=== PATIENT | female | born 1940 | race Caucasian/White ===

== ENCOUNTER 2017-02-02 08:03 | Inpatient (IN) ==
--- NOTE | 2017-02-01 21:44 | Discharge Summary ---
<ThaoBhumi ni L - Last Filed: 02/01/17 21:42> Date of Encounter: 02/01/17 - Discharge Diagnosis (1) Rotator cuff tear arthropathy of right shoulder Priority: Primary Status: Acute (2) Diabetes Priority: Secondary Status: Chronic Qualifiers: Diabetes mellitus type: type 2 Diabetes mellitus complication status: with unspecified complications Diabetes mellitus manager intermediate insulin use: unspecified [facility] insulin use status Qualified Code(s): E11.8 - Type 2 diabetes mellitus with unspecified complications (3) Asthma Priority: Secondary Status: Chronic Qualifiers: Asthma severity: unspecified severity Asthma complication type: uncomplicated Qualified Code(s): J45.909 - Unspecified asthma, uncomplicated (4) COPD (chronic obstructive pulmonary disease) Priority: Secondary Status: Chronic Qualifiers: COPD type: unspecified COPD Qualified Code(s): J44.9 - Chronic obstructive pulmonary disease, unspecified (5) Tobacco abuse Priority: Secondary Status: Chronic (6) DM type 2 (diabetes mellitus, type 2) Priority: Secondary Status: Chronic Qualifiers: Diabetes mellitus complication status: with unspecified complications Diabetes mellitus [facility] insulin use: unspecified manager intermediate insulin use status Qualified Code(s): E11.8 - Type 2 diabetes mellitus with unspecified complications - Discharge Medications Home Medications: Alprazolam [Xanax] 0.5 mg PO BID 08/13/15 [History] Esomeprazole Magnesium [Nexium] 40 mg PO DAILY 08/13/15 [History] Oxygen 2.5 l NS HS 08/13/15 [History] TraZODone 100 mg PO HS 08/13/15 [History] Metformin [Glucophage] 500 mg PO BIDWM #60 tablet 08/20/15 [Rx] OxyCODONE Immed Rel [Roxicodone 5 MG] 5 - 10 mg PO Q6HR PRN #40 tablet 02/01/17 [Rx] Ibuprofen [Motrin] 200 mg PO Q6H PRN 02/02/17 [History] Tramadol HCl [Ultram] 50 mg PO Q6H PRN 02/02/17 [History] Allergies/Adverse Reactions: Allergies No Known Allergies Allergy (Verified 02/02/17 09:55) Primary care physician: Adenike Shelton CNP - Patient Status Disposition: Home, Self-Care Condition: Good - Discharge Instructions Follow Up With: Monroe Alva MD [Partnered Physician] - 03/03/17 10:45 am Bhumi Miner PAC [Physician Director Of Application Development] - 02/12/17 2:30 pm Adenike Shelton CNP [Primary Care Provider] - - Hospital Course Hospital course: Ms. Banda is a 76 year old female - Time Spent with Patient Total time spent providing and/or coordinating discharge services: <Monroe Alva - Last Filed: 02/03/17 06:30> Date of Encounter: 02/03/17 Time of Encounter: 06:29 - Discharge Diagnosis (1) Asthma Priority: Secondary Status: Chronic Qualifiers: Asthma severity: unspecified severity Asthma complication type: uncomplicated Qualified Code(s): J45.909 - Unspecified asthma, uncomplicated (2) COPD (chronic obstructive pulmonary disease) Priority: Secondary Status: Chronic Qualifiers: COPD type: unspecified COPD Qualified Code(s): J44.9 - Chronic obstructive pulmonary disease, unspecified (3) Tobacco abuse Priority: Secondary Status: Chronic (4) DM type 2 (diabetes mellitus, type 2) Priority: Secondary Status: Chronic Qualifiers: Diabetes mellitus complication status: with unspecified complications Diabetes mellitus [facility] insulin use: unspecified [facility] insulin use status Qualified Code(s): E11.8 - Type 2 diabetes mellitus with unspecified complications (5) Rotator cuff tear arthropathy of right shoulder Priority: Primary Status: Acute Primary care physician: Adenike Shelton CNP - Patient Status Functional capacity at discharge: independent ambulation Overall status at discharge: patient is progressing back to baseline - Hospital Course Hospital course: Ms. Banda is a 76 year old female The patient had an uneventful postoperative course. They received antibiotics and physical therapy and were discharged in stable condition. There will follow -up in the office in 2 weeks. - Time Spent with Patient Total time spent providing and/or coordinating discharge services:
--- NOTE | 2017-02-02 08:31 | History & Physical Report ---
Date of Encounter: 02/02/17 Time of Encounter: 08:30 24 Hour HP Update - Instructions Instructions: If the History and Physical is less than 30 days old and was completed prior to A.M. admission and or procedure and has NOT been updated on calendar day of procedure please complete this update prior to performing procedure. - Update Patient reports changes in Medical Condition: No Changes in examination, assessment, or condition: No Changes in Medication: No Preop tests/diagnostics Reviewed: Yes Surgery Remains Indicated: Yes Consent for Planned Operative Procedure(s) Verified: Yes - Pre-Operative Checklist Preoperative Checklist Indicated: No Prophylactic Antibiotic Ordered: Yes Is VTE Prophylaxis Indicated?: Yes
[2017-02-02] MEDS ORDERED: Albuterol 2.5 MG/3 ML NEBULIZER IH ONE (08:43)
[2017-02-02] MEDS ORDERED: CeFAZolin Pre 2,000 MG/100 ML 2,000 MG/100 ML BAG IVPB ONE (08:43)
[2017-02-02] MEDS ORDERED: Ringers Solution, Lactated 1,000 ML IVC SCH ×2 (08:45→12:07)
[2017-02-02] MEDS ORDERED: Gabapentin 300 MG CAPSULE PO ONE (08:50)
[2017-02-02] MEDS ORDERED: Famotidine 20 MG/2 ML VIAL IVP ONE (08:50)
--- NOTE | 2017-02-02 08:54 | Anesthesia Evaluation PreOp ---
Date of Encounter: 02/02/17 Time of Encounter: 08:50 - Past History Planned Operation: Rt Total Shoulder Cardiac History: HTN Pulmonary History: Asthma, COPD, Other (home oxygen at night) SOFTWARE MAINTENANCE ENGINEER History: Other (Paresthesia Rt UE) Other Medical History: Diabetes Type II (Accu check 184) Anesthesia History: No Prior Anesthetic Complications : No Test: Negative Alcohol Use: occasionally Drug use: none Medications and Allergies Alprazolam [Xanax] 0.5 mg PO TID 08/13/15 [History] Calcium Carbonate/Vitamin D3 [Calcium 600-Vit D3 800 Tablet] 1 tab PO BID [History] Esomeprazole Magnesium [Nexium] 40 mg PO DAILY 08/13/15 [History] Metformin [Glucophage] 1,000 mg PO BIDWM 08/13/15 [History] Oxygen 2 l NS HS 08/13/15 [History] TraZODone 100 mg PO HS 08/13/15 [History] Metformin [Glucophage] 500 mg PO BIDWM #60 tablet 08/20/15 [Rx] GuaiFENesin ER [Mucinex] 1,200 mg PO BID #20 tbbp.12hr 01/17/17 [Rx] Levofloxacin [Levaquin] 500 mg PO DAILY #10 tablet 01/17/17 [Rx] PredniSONE See Taper PO DAILY #18 tablet 01/17/17 [Rx] OxyCODONE Immed Rel [Roxicodone 5 MG] 5 - 10 mg PO Q6HR PRN #40 tablet 02/01/17 [Rx] Allergies No Known Allergies Allergy (Verified 01/17/17 12:06) - Meds/Allergy Pre-op Review Medications Reviewed: Yes Allergies Reviewed: Yes Beta Blockers on Current Med List: No Anesthesia Results - Labs Laboratory Tests 01/23/17 01/23/17 01/23/17 11:01 11:01 11:01 Hgb 12.3 Hct 36.8 Plt Count 356 PT 10.5 INR 1.0 Sodium 133 L Potassium 4.8 H BUN 8 Creatinine 0.81 - Imaging EKG: report reviewed (SR) Anesthesia Exam O2 Sat Height 1.55 m Height 1.55 m Height 1.55 m Weight 67.585 kg Weight 67.585 kg Weight 67.585 kg O2 Sat by Pulse Oximetry 96 Vital Signs Temp Pulse Resp BP Pulse Ox 97.7 F 82 18 146/75 96 02/02/17 08:26 02/02/17 08:26 02/02/17 08:26 02/02/17 08:26 02/02/17 08:26 Height: 5'1 Weight: 149 lbs NPO (# of Hours): MN Pain Scale: 0 - HEENT Pupil (Motor): Pupils equal, EOMI Mallampati: III Denture Type: Upper: Complete Oral Opening: Less than or equal to 3 - SOFTWARE MAINTENANCE ENGINEER LOC: Oriented SOFTWARE MAINTENANCE ENGINEER Motor: Normal RUE, Normal LUE, Normal RLE, Normal LLE, Normal Face SOFTWARE MAINTENANCE ENGINEER Sensory: Normal: LUE, RLE, LLE, Face, Deficit: RUE (paresthesia) - Cardiac Rhythm: Regular Murmur: None JVD: No Carotid Bruit: No - Pulmonary Breath Sounds: bilateral Clear Respiratory Effort: Symmetrical Anesthesia Assess/Plan ASA Score: 3 (HTN DM) Modified Rena Scale for Level of Consciousness: Cooperative, oriented, and tranquil Anesthetic Plan: General, Regional Monitoring Plan: Standard Monitors Recovery Plan: PACU (Discussed GA and RA, agrees to proceed)
[2017-02-02] MEDS ORDERED: *HR* FentaNYL (PF) 100 MCG/2 ML VIAL ONE (09:20)
[2017-02-02] MEDS ORDERED: Lidocaine -MPF 2% 2 ML VIAL ONE (09:20)
[2017-02-02] MEDS ORDERED: *HR* Rocuronium Bromide 50 MG/5 ML VIAL ONE (09:20)
[2017-02-02] MEDS ORDERED: *HR* Propofol 200 MG/20 ML VIAL IVP ONE (09:20)
[2017-02-02] MEDS ORDERED: Ondansetron 4 MG/2 ML VIAL ONE (09:20)
[2017-02-02] MEDS ORDERED: *HR* Midazolam HCl 2 MG/2 ML VIAL ONE (09:43)
[2017-02-02] MEDS ORDERED: ROPIVACAINE HCL/PF 0.5% 30 ML VIAL ONE (09:45)
[2017-02-02] MEDS ORDERED: Tetracaine/PF 20 MG/2 ML AMPUL ONE (09:46)
[2017-02-02] MEDS ORDERED: Bupivacaine/Clonidine Syringe 1 EACH SYRINGE ONE (09:47)
--- NOTE | 2017-02-02 10:11 | Anesthesia Procedures ---
Date of Encounter: 02/02/17 Time of Encounter: 08:50 Procedures: Anesthesia - Nerve Block Procedure Date: 02/02/17 Time: 10:00 Pre-op Diagnosis: Rt Shoulder Arthropathy Surgical Procedure: Rt Total Shoulder Checklist: Correct Patient Identifier Correct side: Right Blood Thinner: No Monitor Applied: EKG, BP, Pulse Oximetry Supplemental Oxygen via Nasal Cannula (L/min): 2 Sedation: Versed (mg): 1 Sedation: Fentanyl (mcg): 100 Indication: Post Op Analgesia Pre-op Neuro Deficits: Yes (Rt UE paresthesia) Block Type: Supraclavicular Catheter placed: No Depth at skin (cm): 2 Sterile Technique: Yes Ultrasound used: Yes Anatomy identified: Yes Visual spread of Local: Yes Neuro Stimulation: No Blood on Needle Aspiration: No Smooth Injection of Local: Yes Pain with Injection of Local: No Prep: Chlorhexadine Needle: 22 x 50 mm Stimuplex Local: Tetracaine, Ropivacaine (0.5%) Volume (cc): 30 Number of Attempts: 1 Complications: None/effective block Vitals: Vital Signs/O2 Sat/Glucose, Most Current Temp Pulse Resp BP Pulse Ox 02/02/17 09:47 83 142/79 97 02/02/17 08:26 97.7 F 82 18 146/75 96
[2017-02-02] MEDS ORDERED: Neostigmine Methylsulfate 3 MG/3 ML SYRINGE ONE ×2 (10:56→15:40)
--- NOTE | 2017-02-02 10:56 | Orthopedic Operative Note ---
Date of procedure: 02/02/17 Pre-op diagnosis: Right shoulder cuff tear arthropathy Post-op diagnosis: same Procedure: Procedure: Right Total Shoulder Replacment Reverse, biceps tenodesis Estimated blood loss: 100 cc Hardware:Arthrex medium glenoid baseplate, 2 4.5 screws. 1 6.5 screw, 39 lateral glenosphere, 8 humeral stem, poly insert 6 Exam Under anesthesia: Full motion no instability Procedural Notes: Irreparable tear supraspinatus tendon. Operative procedure: The patient was brought to the operating room and placed on the operating room table. After general anesthesia was administered the operative shoulder was examined. Findings were noted. The patient was placed in the modified beachchair position. All pressure points were padded appropriately. And the head was stabilized in the neutral position. The operative extremity was prepped and draped in the sterile surgical fashion. The patient received IV antibiotics prior to skin incision. A standard deltopectoral approach was made to the operative shoulder. Incision was made to the skin and subcutaneous tissue,hemo stasis was obtained with Bovie cautery. Using careful blunt dissection the cephalic vein was identified and mobilized medially. The deltopectoral interval was developed and the clavipectoral fascia was incised. The subscap was released off the lesser tuberosity and tagged with #2 FiberWire suture. The humerus was dislocated patient noted to have irreparable tear supraspinatus tendon, and the humeral cut was made along the anatomic neck. Anterior and posterior Bankart retractors were placed to expose the glenoid. The glenoid guide was seated and the centering hole was made. It was reamed with the appropriate reamer. The medium baseplate was seated and secured with (2) 4.5 screws and one 6.5 screw. The baseplate was irrigated and dried and the 39 lateral Glenosphere was seated and secured with the Paul taper. The Paul taper was tested and found to be secure the humerus was redislocated and prepared with the diaphyseal reamers, followed by a broaching process up to the appropriate size X in the patient's anatomic version. The metaphyseal reamer was then utilized. Trial reduction found the shoulder to be relocatable. Trial components were removed and drill holes were placed in the lesser tuberosity. They were filled with #5 FiberWire suture. These sutures were used for a subscap repair. The appropriate 8 stem was impacted in place in the patient's anatomic version. Trial reduction found the shoulder to be relocatable and stable with the appropriate 6 Trial component was removed and the Judd Jemima was seated and secured the shoulder was reduced. The shoulder had excellent motion and excellent stability and no evidence of dislocation. The deep tissue was irrigated with pulse irrigation. The subscap was repaired incorporating the biceps tendon for biceps tenodesis and a subscap repair. The deltopectoral interval was closed with a running #1 PDS suture, subcutaneous tissue was irrigated and closed with 0 PDS suture, the skin was closed with Dermabond. The patient was placed in a sterile dressing, abduction brace and extubated. The patient was then transferred to the recovery room in stable condition. Anesthesia: BHARGAV Surgeon: Monroe Alva Area Director: Bhumi Miner Condition: stable Disposition: PACU
[2017-02-02 11:35] LABS: Hematocrit 30.3 % (35.3-44.9); Hemoglobin 10.1 g/dL (11.5-15.4)
[2017-02-02] MEDS ORDERED: *HR* HYDROmorphone (PF) 1 MG/ML SYRINGE IVP PRN (12:07)
[2017-02-02] MEDS ORDERED: Naloxone 0.4 MG/ML INJ IVP PRN (12:07)
[2017-02-02] MEDS ORDERED: traMADol 50 MG TABLET PO PRN (12:07)
[2017-02-02] MEDS ORDERED: D5% in Water 1,000 ML IVC PRN (12:07)
[2017-02-02] MEDS ORDERED: Temazepam 15 MG CAPSULE PO PRN (12:07)
[2017-02-02] MEDS ORDERED: Sennosides 8.6 MG TABLET PO PRN (12:07)
[2017-02-02] MEDS ORDERED: *HR* Dextrose 50 % in Water (Syg) 50 ML SYRINGE IVP PRN (12:07)
[2017-02-02] MEDS ORDERED: Acetaminophen 325 MG TABLET PO PRN (12:07)
[2017-02-02] MEDS ORDERED: MOM Conc 10 ML UD.LIQ PO PRN (12:07)
[2017-02-02] MEDS ORDERED: Ondansetron 4 MG/2 ML VIAL IVP PRN (12:07)
[2017-02-02] MEDS ORDERED: Ibuprofen 200 MG TABLET PO PRN (12:07)
[2017-02-02] MEDS ORDERED: Dextrose Gel 15 GM PO PRN ×2 (12:07)
[2017-02-02] MEDS ORDERED: *HR* OxyCODONE Immed Rel 5 MG TABLET PO PRN ×2 (12:07→12:18)
--- NOTE | 2017-02-02 12:10 | Anesthesia Evaluation Post Op ---
Date of Encounter: 02/02/17 Time of Encounter: 12:00 - Vital Signs Vital Signs: Vital Signs/O2 Sat/Glucose, Most Current Temp Pulse Resp BP Pulse Ox 02/02/17 11:55 97.6 F 72 16 147/78 99 02/02/17 11:45 97.8 F 77 16 147/81 99 02/02/17 11:35 94 16 150/81 99 02/02/17 11:25 92 16 141/72 99 02/02/17 11:15 97.1 F L 95 18 151/77 93 02/02/17 09:47 83 142/79 97 02/02/17 08:26 97.7 F 82 18 146/75 96 - Lungs Lungs: Clear Ascult./Percussion - Airway Airway: Non-obstructed - Cardiovascular Regular Rate - Mental Status Mental Status: Alert & Oriented, Answers Appropriately - Pain Pain Scale: 0 - Nausea Vomiting Nausea Vomiting: Not Present - Hydration Hydration: Ice chips - Discharge PostOp Status: Transfer Patient to floor
[2017-02-02] MEDS: Insulin LISPRO 300 UNITS/3 ML VIAL SQ SCH ×2 (12:51→16:23)
[2017-02-02] MEDS: ALPRAZolam 0.5 MG TABLET PO SCH ×2 (14:38→21:52)
[2017-02-02] MEDS: *HR* Enoxaparin 30 MG/0.3 ML SYRINGE SQ SCH (17:49)
[2017-02-02] MEDS: ceFAZolin 2,000 MG in D5% in Water 100 ML IVPB SCH (17:49)
[2017-02-02] MEDS: *HR* Metformin 500 MG TABLET PO SCH (17:49)
[2017-02-02] MEDS ORDERED: *HR* Enoxaparin 30 MG/0.3 ML SYRINGE SQ SCH (18:00)
[2017-02-02] MEDS ORDERED: Insulin LISPRO 300 UNITS/3 ML VIAL SQ SCH (21:00)
[2017-02-02] MEDS ORDERED: traZODone 50 MG TABLET PO SCH (21:00)
[2017-02-02] MEDS ORDERED: NON-FORMULARY MEDICATION 1 EACH EACH (Oxygen [Oxygen] 2.5 L) NS SCH (21:00)
[2017-02-03] MEDS: ceFAZolin 2,000 MG in D5% in Water 100 ML IVPB SCH (01:58)
[2017-02-03] MEDS: *HR* OxyCODONE Immed Rel 5 MG TABLET PO PRN ×2 (01:59→06:38)
[2017-02-03 05:15] LABS: Hematocrit 33.6 % (35.3-44.9); Hemoglobin 11.2 g/dL (11.5-15.4)
[2017-02-03] MEDS: *HR* Enoxaparin 30 MG/0.3 ML SYRINGE SQ SCH (05:38)
--- NOTE | 2017-02-03 06:30 | Orthopedics Progress Note ---
Date of Encounter: 02/03/17 Time of Encounter: 06:30 - Assessment and Plan (1) Asthma Current Visit: No Status: Chronic Qualifiers: Asthma severity: unspecified severity Asthma complication type: uncomplicated Qualified Code(s): J45.909 - Unspecified asthma, uncomplicated (2) COPD (chronic obstructive pulmonary disease) Current Visit: No Status: Chronic Qualifiers: COPD type: unspecified COPD Qualified Code(s): J44.9 - Chronic obstructive pulmonary disease, unspecified (3) Tobacco abuse Current Visit: No Status: Chronic (4) DM type 2 (diabetes mellitus, type 2) Current Visit: No Status: Chronic Qualifiers: Diabetes mellitus complication status: with unspecified complications Diabetes mellitus custodial insulin use: unspecified custodial insulin use status Qualified Code(s): E11.8 - Type 2 diabetes mellitus with unspecified complications (5) Rotator cuff tear arthropathy of right shoulder Current Visit: Yes Status: Acute Subjective Interval history: Patient was seen this morning doing well without complaints. Afebrile vital signs stable. Operative extremity: Neurovascularly intact Dressing clean dry and intact Calves nontender Assessment and plan: Continue with postoperative care Hematocrit 33 discharged today Objective Vital signs: Vital Signs Temp Pulse Resp BP Pulse Ox 02/03/17 04:34 97.6 F 66 18 141/56 97 02/02/17 23:58 97.7 F 64 19 149/69 97 02/02/17 20:15 97.8 F 69 17 143/63 97 02/02/17 15:12 96.7 F L 02/02/17 14:49 62 12 142/81 97 02/02/17 14:16 95.9 F L 589 12 147/74 92 02/02/17 13:49 95.9 F L 02/02/17 13:20 96.2 F L 71 16 151/91 98 02/02/17 12:49 66 14 162/94 100 02/02/17 12:26 100 02/02/17 12:22 65 14 156/82 100 02/02/17 11:55 97.6 F 72 16 147/78 99 02/02/17 11:45 97.8 F 77 16 147/81 99 02/02/17 11:35 94 16 150/81 99 02/02/17 11:25 92 16 141/72 99 02/02/17 11:15 97.1 F L 95 18 151/77 93 02/02/17 09:47 83 142/79 97 02/02/17 08:26 97.7 F 82 18 146/75 96 Intake and Output 02/02/17 02/02/17 02/03/17 15:59 23:59 07:59 Intake Total 100 / 100 100 / 100 100 / 100 Output Total 250 / 250 1350 / 1350 Balance -150 / -150 -1250 / -1250 100 / 100 Intake: IV Fluids 100 / 100 100 / 100 100 / 100 Ancef 2,000 MG In 100 / 100 100 / 100 Dextrose 5% 100 ML @ 200 mls/hr IVPB Q8H JACQUELINE Rx#: [id number] Ancef Premix 2,000 MG/100 100 / 100 ML 2,000 mg In 100 ml @ 200 mls/hr IVPB PREOP ONE Rx#:[id number] Output: Urine 150 / 150 1350 / 1350 Estimated Blood Loss 100 / 100 Other: # Voids 1 Weight 67.585 kg Blood Glucose* 157 228 - Labs CBC & BMP: 02/03/17 04:53 Labs: Abnormal lab results Hgb 11.2 g/dL (11.5-15.4) L 02/03/17 04:53 Hct 33.6 % (35.3-44.9) L 02/03/17 04:53 POC Glucose 228 (58-89) H 02/02/17 20:35 - VTE Documentation of Mechanical Device: Venous foot pump, device Consult Discharge Plan - Plan Referrals: Monroe Alva MD [Partnered Physician] - 03/03/17 10:45 am Bhumi Miner, PAC [Physician Cat Scan Tech] - 02/12/17 2:30 pm Adenike Shelton SUPERVISOR GRADING [Primary Care Provider] -
[2017-02-03] MEDS: ALPRAZolam 0.5 MG TABLET PO SCH (07:55)
[2017-02-03] MEDS: Insulin LISPRO 300 UNITS/3 ML VIAL SQ SCH (07:56)
[2017-02-03] MEDS: *HR* Metformin 500 MG TABLET PO SCH (07:56)
[2017-02-03 10:15] VITALS: BP 166/87
== END 2017-02-03 10:59 | disposition home or self-care (01) | DRG 483 ==
LOC: SAMDAY 08:03 → 3NENU 12:25
PROVIDERS: ADMIT Orthopaedic Surgery; ATTEND Orthopaedic Surgery

== ENCOUNTER 2017-05-20 13:00 | Inpatient (IN) ==
--- NOTE | 2017-05-20 14:32 | Orthopedic Consult Note ---
Date of Encounter: 05/20/17 Time of Encounter: 14:29 Assessment and Plan (1) Fracture, femur, distal Current Visit: Yes Status: Acute Patient has displaced distal 1/3 femur fracture, intense pain and inability to ambulate. Discussed surgical versus non-surgical mangagement. Plan for OR today with - Left Distal Femur ORIF. Hospitalist cleared. Consent obtained, discussed and signed by patient. Discussed with family. NPO. Labs from [facility] reviewed - no abnl noted. HgA1c 7.1. Knee X-Ray 05/20/17 11:28 IMPRESSION: 1. Acute comminuted fracture of the left femoral distal metadiaphysis with overriding, angulation, and displacement as above. The fracture appears closed. 2. Suspected small to moderate left suprapatellar effusion, likely hemarthrosis if present. D/ / Trevon Aguirre MD / Trevon Aguirre MD Interpreting Provider: Trevon Aguirre MD Chest X-Ray 05/20/17 12:14 IMPRESSION: No evidence of acute cardiopulmonary disease. Qualifiers: Encounter type: initial encounter Fracture type: closed Fracture morphology: other fracture Laterality: left Qualified Code(s): S72.492A - Other fracture of lower end of left femur, initial encounter for closed fracture (2) History of total right knee replacement Current Visit: Yes Status: Acute (3) Diabetes Current Visit: No Status: Chronic Qualifiers: Diabetes mellitus type: type 2 Diabetes mellitus complication status: without complication Diabetes mellitus assisted insulin use: without assisted use Qualified Code(s): E11.9 - Type 2 diabetes mellitus without complications (4) Asthma Current Visit: No Status: Chronic Qualifiers: Asthma severity: unspecified severity Asthma complication type: uncomplicated Qualified Code(s): J45.909 - Unspecified asthma, uncomplicated (5) COPD (chronic obstructive pulmonary disease) Current Visit: No Status: Chronic Qualifiers: COPD type: chronic bronchitis Chronic bronchitis type: unspecified Qualified Code(s): J42 - Unspecified chronic bronchitis (6) Tobacco abuse Current Visit: No Status: Chronic (7) DM type 2 (diabetes mellitus, type 2) Current Visit: No Status: Chronic Qualifiers: Diabetes mellitus complication status: without complication Diabetes mellitus assisted insulin use: unspecified termite renewal inspector insulin use status Qualified Code(s): E11.9 - Type 2 diabetes mellitus without complications History of Present Illness Chief complaint: LEFT Distal Femur Fracture HPI: Ms. Banda is a 77 year old female, brought to [facility] from [facility] after sustaining a LEFT distal femur fracture. She fell today. She states that she slipped on the outside stairs, and twisted her left knee. She now complains of sharp constant pain of the left knee with any attempted range of motion. Unable to ambulate. She denies syncope. She denies head injury or loss of consciousness. She denies neck back chest or abdominal pain. She denies any motor or sensory deficits. History of bilateral TKR 08/2015. Recent Right TSR-reverse ball and socket . No complications from the surgery. Significant medical history DMII, COPD with chronic bronchitis, nocturnal hypoxia, HTN, asthma and anxiety. Past Med Surg Social Fam HX - Past Medical History Medical history: arthritis, asthma, COPD, diabetes, hypertension, other Psychiatric history: anxiety - Past Surgical History Surgical History: cholecystectomy, hysterectomy, knee replacement, other - Social History Smoking Status: Former smoker Smokeless Tobacco Status: No Alcohol use: occasionally Drug use: none - Family History Father Living Status: Mother Living Status: Sister Living Status: Still Living Hx Family Cancer: Yes Son Living Status: Medications and Allergies Alprazolam [Xanax] 0.5 mg PO BID 08/13/15 [History] Oxygen 2.5 l NS HS 08/13/15 [History] traZODone [TraZODone] 100 mg PO HS 08/13/15 [History] Metformin [Glucophage] 500 mg PO BIDWM #60 tablet 08/20/15 [Rx] Tramadol HCl [Ultram] 50 mg PO Q6H PRN 02/02/17 [History] HYDROcodone/Acet 5/325 mg [[place] 5-325 mg] 1 tab PO Q6H PRN 05/20/17 [History] Omeprazole [PriLOSEC] 20 mg PO DAILY 05/20/17 [History] Allergies No Known Allergies Allergy (Verified 05/20/17 11:27) All Systems Reviewed: A 10-system review of systems was performed and is negative for pertinent findings except as documented above in the HPI. - Constitutional Constitutional: as per HPI - Cardiovascular Cardiovascular: as per HPI, no chest pain, no syncope - Respiratory Respiratory: as per HPI, no cough, no dyspnea, no hemoptysis - Musculoskeletal Musculoskeletal: as per HPI Physical Exam - Fracture left femur Location of fracture: Left distal 1/3 of femur Appearance: swelling, ventral prominence Compartments: soft Distal extremity neurovascularly intact: Yes Proximal joint involvement: No Distal joint involvement: No Results - Labs Labs: All other labs normal. Labs reviewed from [place] [facility] - no abnl noted. CXR - normal. - Diagnostic results Knee x-ray: report reviewed, image reviewed Consult Discharge Plan - Plan Referrals: NONE,PCP [Primary Care Provider] -
--- NOTE | 2017-05-20 14:55 | Anesthesia Evaluation PreOp ---
Date of Encounter: 05/20/17 Time of Encounter: 15:13 - Past History Planned Operation: l femur orif Cardiac History: HTN Pulmonary History: Former smoker, COPD PLANNING LEAD History: Other (anxiety) Other Medical History: Diabetes Type II (180), GERD, Other (OA) Anesthesia History: No Prior Anesthetic Complications, Past Anesthesia ( cholecyst, hysterect, tka) Alcohol Use: occasionally Drug use: none Medications and Allergies Alprazolam [Xanax] 0.5 mg PO BID 08/13/15 [History] Oxygen 2.5 l NS HS 08/13/15 [History] traZODone [TraZODone] 100 mg PO HS 08/13/15 [History] Metformin [Glucophage] 500 mg PO BIDWM #60 tablet 08/20/15 [Rx] Tramadol HCl [Ultram] 50 mg PO Q6H PRN 02/02/17 [History] HYDROcodone/Acet 5/325 mg [[place] 5-325 mg] 1 tab PO Q6H PRN 05/20/17 [History] Omeprazole [PriLOSEC] 20 mg PO DAILY 05/20/17 [History] Allergies No Known Allergies Allergy (Verified 05/20/17 11:27) - Meds/Allergy Pre-op Review Medications Reviewed: Yes Allergies Reviewed: Yes Beta Blockers on Current Med List: No Anesthesia Results - Labs Laboratory Tests 05/20/17 05/20/17 05/20/17 12:24 12:24 12:24 Hgb 12.0 Hct 35.6 Plt Count 215 PT 11.3 INR 1.1 APTT 31.1 Sodium 139 Potassium 4.0 Creatinine 0.77 - Imaging EKG: report reviewed (sr) Anesthesia Exam O2 Sat Height 1.55 m Weight 67.132 kg O2 Sat by Pulse Oximetry 93 Vital Signs Pulse Resp BP Pulse Ox 71 17 141/74 93 05/20/17 14:30 05/20/17 14:30 05/20/17 14:30 05/20/17 14:30 Blood glucose: 180 Height: 1.55 Weight: 67 NPO (# of Hours): >8 - HEENT Pupil (Motor): Pupils equal, EOMI Mallampati: II Teeth: Edentulous Oral Opening: Greater than 3 - PLANNING LEAD LOC: Oriented PLANNING LEAD Motor: Normal RUE, Normal LUE, Normal RLE, Normal LLE, Normal Face PLANNING LEAD Sensory: Normal: RUE, LUE, RLE, LLE, Face - Cardiac Rhythm: Regular Murmur: None - Pulmonary Breath Sounds: bilateral Clear Respiratory Effort: Symmetrical Anesthesia Assess/Plan ASA Score: 3 (lidocaine and ketamine gtt) Modified Rena Scale for Level of Consciousness: Cooperative, oriented, and tranquil Anesthetic Plan: General Monitoring Plan: Standard Monitors Recovery Plan: PACU
[2017-05-20] MEDS ORDERED: *HR* Propofol 200 MG/20 ML VIAL IVP ONE (14:59)
[2017-05-20] MEDS ORDERED: *HR* FentaNYL (PF) 100 MCG/2 ML VIAL ONE (14:59)
[2017-05-20] MEDS ORDERED: Lidocaine -MPF 2% 2 ML VIAL ONE (15:01)
[2017-05-20] MEDS ORDERED: Ringers Solution, Lactated 1,000 ML IVC SCH ×4 (15:15→18:15)
[2017-05-20] MEDS ORDERED: Albuterol 2.5 MG/3 ML NEBULIZER IH ONE ×2 (15:20→18:15)
[2017-05-20] MEDS ORDERED: Ondansetron 4 MG/2 ML VIAL IVP ONE ×2 (15:20→18:15)
[2017-05-20] MEDS ORDERED: *HR* Meperidine 25 MG/ML SYRINGE IVP PRN ×2 (15:20→18:15)
[2017-05-20] MEDS ORDERED: Naloxone 0.4 MG/ML INJ IVP PRN ×2 (15:20→18:15)
[2017-05-20] MEDS ORDERED: *HR* Labetalol 20 MG/4 ML SYRINGE IVP PRN ×2 (15:20→18:15)
[2017-05-20] MEDS ORDERED: Dexamethasone 4 MG/ML VIAL ONE (15:53)
[2017-05-20] MEDS ORDERED: Ondansetron 4 MG/2 ML VIAL ONE (15:53)
[2017-05-20] MEDS ORDERED: Ketamine *HR* 500 MG/10 ML MDV ONE (15:54)
[2017-05-20] MEDS ORDERED: *HR* Morphine 10 MG/ML VIAL ONE (17:05)
--- NOTE | 2017-05-20 17:10 | Orthopedic Operative Note ---
Date of procedure: 05/20/17 Pre-op diagnosis: Displaced left comminuted distal third femur fracture. Post-op diagnosis: same Procedure: Left open reduction internal fixation femoral shaft fracture Estimated blood loss: 300 cc Hardware: 6 hole periarticular distal femoral Synthes Large Frag 4.5 LCDCP locking Plate, 1 4.5 cortical screws, 9 5.0 Locking screws, one super cable Procedural Notes: Patient with a comminuted displaced distal third femur fracture proximal to femoral component of knee replacement. No involvement of femoral replacement. Operative procedure: The patient was brought to the operating room and placed on the operating room fracture table. The well leg was placed in the well leg mccarthy, the fracture leg was placed in the fracture leg mccarthy. After general anesthesia was administered the operative leg was prepped and draped in the sterile surgical fashion The patient received IV antibiotics prior to skin incision. A standard lateral approach was made to the femur the incision is made to the skin and subcutaneous tissue. Hemostasis was obtained with Bovie cautery. Using careful blunt dissection the tensor fascia was identified and incised along the length of the incision. The vastus lateralis was elevated up after the fascia was split exposing the lateral femur and the fracture site. The fractures reduced and held in place with bone holding forceps one super cable was passed around the fracture to gain preliminary fixation. A 6-hole periarticular distal femoral 4.5 LCDCP locking plate was approximated to the lateral surface was fixed in compression proximally with a 4.5 cortical screw. The fracture was fixed distally with 5.0 cannulated locking screws. Proximal fixation was completed with 5.0 solid locking screws. Position of hardware as well as fracture reduction was found to be acceptable with fluoroscopic assistance. The wound was irrigated the fascia was closed with a running #1 PDS suture tensa fascia was closed with a running #2 PDS suture subcutaneous tissues and closed deep #1 PDS suture superficially with 0 PDS suture and skin was closed with skin harshad. The patient was placed in a sterile dressing, postoperative brace. The patient was extubated, and then transferred to the recovery room in stable condition. Anesthesia: GETA Surgeon: Monroe Alva Condition: stable Disposition: PACU
[2017-05-20] MEDS: *HR* HYDROmorphone (PF) 1 MG/ML SYRINGE IVP PRN ×4 (17:21→17:48)
[2017-05-20 18:10] LABS: Hematocrit 33.2 % (35.3-44.9)
--- NOTE | 2017-05-20 18:12 | Anesthesia Evaluation Post Op ---
Date of Encounter: 05/20/17 Time of Encounter: 18:11 - Vital Signs Vital Signs: Vital Signs/O2 Sat/Glucose, Most Current Temp Pulse Resp BP Pulse Ox 05/20/17 18:01 98.4 F 71 20 161/76 100 05/20/17 17:51 69 24 156/72 93 05/20/17 17:41 98.4 F 74 21 149/95 95 05/20/17 17:31 75 22 142/87 97 05/20/17 17:21 82 24 179/86 96 05/20/17 17:11 97.5 F L 90 24 178/101 97 05/20/17 14:30 71 17 141/74 93 - Lungs Lungs: Clear Ascult./Percussion - Airway Airway: Non-obstructed - Cardiovascular Regular Rate - Mental Status Mental Status: Alert & Oriented, Answers Appropriately - Pain Pain Scale: 2 - Nausea Vomiting Nausea Vomiting: Not Present - Hydration Hydration: Tolerates oral liquids - Discharge PostOp Status: Transfer Patient to floor
[2017-05-20] MEDS ORDERED: *HR* HYDROmorphone (PF) 1 MG/ML SYRINGE IVP PRN ×2 (18:15→19:14)
[2017-05-20] MEDS ORDERED: Ondansetron 4 MG/2 ML VIAL IVP PRN (19:11)
[2017-05-20] MEDS ORDERED: *HR* OxyCODONE Immed Rel 5 MG TABLET PO PRN (19:13)
[2017-05-20] MEDS ORDERED: ALPRAZolam 0.5 MG TABLET PO PRN (19:17)
[2017-05-20] MEDS: ceFAZolin 2,000 MG in D5% in Water 100 ML IVPB SCH (20:05)
[2017-05-20] MEDS: traZODone 50 MG TABLET PO SCH (21:54)
[2017-05-21] MEDS: ceFAZolin 2,000 MG in D5% in Water 100 ML IVPB SCH (02:04)
[2017-05-21] MEDS: *HR* OxyCODONE Immed Rel 5 MG TABLET PO PRN ×3 (04:03→18:44)
[2017-05-21] MEDS: Aspirin 81 MG TAB.CHEW PO SCH (07:57)
[2017-05-21] MEDS: *HR* Metformin 500 MG TABLET PO SCH ×2 (07:57→16:37)
[2017-05-21 10:16] LABS: Hemoglobin 10.1 g/dL (11.5-15.4)
--- NOTE | 2017-05-21 12:41 | Orthopedics Progress Note ---
Date of Encounter: 05/21/17 Time of Encounter: 08:00 - Assessment and Plan (1) Fracture, femur, distal Current Visit: Yes Status: Acute POD#1 Left Distal Femur ORIF 05/20/17 - Patient doing well, A&O in bed. Pain controlled. Vitals stable. Afebrile. H/H - 10.11/11 - LLE: Minimal swelling, no erythema or ecchymosis noted. No calf tenderness or warmth noted. ROM limited. NV intact distally. Plan: Tranfuse 2 units today. LLE: NWB, in knee immobilizer x 6 weeks with no knee flexion Bone stimulator use 3 hours/day - complaining of burning during use, if this happens today will ask bracing to come to evaluate. D/C to ECF or HH likely today or tomorrow* pending Auth Qualifiers: Encounter type: initial encounter Fracture type: closed Fracture morphology: other fracture Laterality: left Qualified Code(s): S72.492A - Other fracture of lower end of left femur, initial encounter for closed fracture (2) History of total right knee replacement Current Visit: Yes Status: Acute (3) Diabetes Current Visit: No Status: Chronic Qualifiers: Diabetes mellitus type: type 2 Diabetes mellitus complication status: without complication Diabetes mellitus assisted insulin use: without assisted use Qualified Code(s): E11.9 - Type 2 diabetes mellitus without complications (4) Asthma Current Visit: No Status: Chronic Qualifiers: Asthma severity: unspecified severity Asthma complication type: uncomplicated Qualified Code(s): J45.909 - Unspecified asthma, uncomplicated (5) COPD (chronic obstructive pulmonary disease) Current Visit: No Status: Chronic Qualifiers: COPD type: chronic bronchitis Chronic bronchitis type: unspecified Qualified Code(s): J42 - Unspecified chronic bronchitis (6) Tobacco abuse Current Visit: No Status: Chronic (7) DM type 2 (diabetes mellitus, type 2) Current Visit: No Status: Chronic Qualifiers: Diabetes mellitus complication status: without complication Diabetes mellitus terminologist insulin use: unspecified assisted insulin use status Qualified Code(s): E11.9 - Type 2 diabetes mellitus without complications Subjective Principal diagnosis: Left Femur Fracture Interval history: POD#1 Left Distal Femur ORIF 05/20/17 - Patient doing well, A&O in bed. Pain controlled. Vitals stable. Afebrile. H/H - - LLE: Minimal swelling, no erythema or ecchymosis noted. No calf tenderness or warmth noted. ROM limited. NV intact distally. Plan: Tranfuse 2 units today. LLE: NWB, in knee immobilizer x 6 weeks with no knee flexion Bone stimulator use 3 hours/day - complaining of burning during use, if this happens today will ask bracing to come to evaluate. D/C to ECF or HH likely today or tomorrow* pending Auth Objective Vital signs: Vital Signs Temp Pulse Resp BP Pulse Ox 05/21/17 11:22 98.5 F 87 18 157/85 95 05/21/17 11:16 75 17 119/68 98 05/21/17 07:32 98.0 F 75 17 119/68 98 05/21/17 04:46 98.1 F 77 18 118/60 97 05/21/17 01:11 98.3 F 80 17 111/67 97 05/20/17 21:56 98.3 F 85 16 112/59 98 05/20/17 20:43 97.2 F L 84 16 143/74 96 05/20/17 19:47 98.4 F 82 16 146/78 97 05/20/17 19:10 98.1 F 83 16 144/80 96 05/20/17 18:34 97.7 F 77 16 136/73 05/20/17 18:11 98.4 F 75 17 157/55 99 05/20/17 18:01 98.4 F 71 20 161/76 100 05/20/17 17:51 69 24 156/72 93 05/20/17 17:41 98.4 F 74 21 149/95 95 05/20/17 17:31 75 22 142/87 97 05/20/17 17:21 82 24 179/86 96 05/20/17 17:11 97.5 F L 90 24 178/101 97 05/20/17 14:30 71 17 141/74 93 Intake and Output 05/20/17 05/21/17 05/21/17 23:59 07:59 15:59 Intake Total 420 / 420 550 / 550 Output Total 625 / 625 800 / 800 Balance -205 / -205 -250 / -250 Intake: IV Fluids 100 / 100 100 / 100 Ancef 2,000 MG In 100 / 100 100 / 100 Dextrose 5% 100 ML @ 200 mls/hr IVPB Q8HR JACQUELINE Rx#: [id number] Oral 320 / 320 450 / 450 Output: Estimated Blood Loss 300 / 300 Catheter 325 / 325 800 / 800 Other: Blood Glucose* 235 137 125 Incision: clean and dry - Labs CBC & BMP: 05/21/17 10:05 Labs: Abnormal lab results Hgb 10.1 g/dL (11.5-15.4) L 05/21/17 10:05 Hct 31.0 % (35.3-44.9) L 05/21/17 10:05 POC Glucose 235 (58-89) H 05/20/17 21:04 - VTE Documentation of Mechanical Device: Venous foot pump, device Consult Discharge Plan - Plan Referrals: NONE,PCP [Primary Care Provider] -
--- NOTE | 2017-05-21 13:35 | Internal Med Progress Note ---
Date of Encounter: 05/21/17 Time of Encounter: 08:20 - Assessment and plan (1) Fracture, femur, distal Current Visit: Yes Status: Acute Assessment and plan: Status post open reduction and internal fixation. Postop day 1. Patient is doing better post surgery. Will receive physical therapy. milk house worker consulted to help with discharge needs. Moderate risk for complications. On aspirin for DVT prophylaxis. Qualifiers: Encounter type: initial encounter Fracture type: closed Fracture morphology: unspecified fracture morphology Laterality: left Qualified Code( s): S72.402A - Unspecified fracture of lower end of left femur, initial encounter for closed fracture (2) DM type 2 (diabetes mellitus, type 2) Current Visit: Yes Status: Chronic Assessment and plan: Blood sugars are well controlled. On metformin. Will add low-dose sliding scale coverage. Monitor blood sugars closely. Qualifiers: Diabetes mellitus complication status: without complication Diabetes mellitus correction insulin use: unspecified correction insulin use status Qualified Code(s): E11.9 - Type 2 diabetes mellitus without complications (3) Acute blood loss anemia Current Visit: Yes Status: Acute Assessment and plan: From surgical blood loss. We will monitor blood counts. Transfuse if needed. (4) COPD (chronic obstructive pulmonary disease) Current Visit: Yes Status: Chronic Assessment and plan: Not in any acute exacerbation. Will place on bronchodilators as needed. Qualifiers: COPD type: chronic bronchitis Chronic bronchitis type: unspecified Qualified Code(s): J42 - Unspecified chronic bronchitis (5) HTN (hypertension) Current Visit: Yes Status: Chronic Assessment and plan: Blood pressure is well controlled. Qualifiers: Hypertension type: essential hypertension Qualified Code(s): I10 - Essential (primary) hypertension - Subjective Interval history: Patient underwent left open reduction and internal fixation of left humeral shaft fracture yesterday. Doing well postprocedure. Pain is well controlled with her current pain medication regimen. No fever or chills reported. - Constitutional Vitals: Temp Pulse Resp BP Pulse Ox 98.5 F 87 18 157/85 95 05/21/17 11:22 05/21/17 11:22 05/21/17 11:22 05/21/17 11:22 05/21/17 11:22 General appearance: Present: cooperative, A&O X 3, answers questions appropriately - Neck Neck exam general surgery: Present: supple, trachea midline. Absent: lymphadenopathy - Respiratory Respiratory exam: Present: CTAB. Absent: accessory muscle use, rales, rhonchi, wheezes - Cardiovascular Cardiovascular exam: Present: RRR, +S1, +S2. Absent: diastolic murmur, gallop, rubs, systolic murmur - GI/Abdominal GI/Abdominal exam: Present: normal bowel sounds, soft, no peritoneal signs. Absent: distended, tenderness - Extremities Exam Extremities exam: Present: tenderness (Over her left thigh and knee from surgery. With decreased range of motion.), warm, radial pulses palpable and symmetrical. Absent: calf tenderness, cyanotic, pedal edema - Neurological Exam Neurological exam: Present: alert, oriented X3, no focal deficits. Absent: facial droop, speech deficit Internal Medicine: Result - Labs CBC & Chem 7: 05/21/17 10:05 Labs: Short CBC 05/20/17 05/21/17 Range/Units 17:43 10:05 Hgb 11.0 L 10.1 L (11.5-15.4) g/dL Hct 33.2 L 31.0 L (35.3-44.9) % - Impressions Impressions Femur X-Ray 05/20/17 15:44 IMPRESSION: Status post near anatomic reduction of the displaced and angulated left distal femoral metadiaphyseal fracture with ORIF. D/ / 05/20/2017 18:02:07 Haresh Champagne MD / don Interpreting Provider: Haresh Champagne MD - VTE Documentation of Mechanical Device: Venous foot pump, device Consult Discharge Plan - Plan Referrals: NONE,PCP [Primary Care Provider] -
--- NOTE | 2017-05-21 13:39 | Internal Med History&Physical ---
Date of Encounter: 05/21/17 Time of Encounter: 13:38 Assessment and Plan (1) Fracture, femur, distal Current visit: Yes Status: Acute ortho has been consulted. planned for surgery today beryl has low cardio- pulmonary jenny operative risk for the proposed surgery. post op care as per ortho ensure DVT prophylaoxs. Incentive spirometry. PT OT consult for postop rehabilitation, may need inpatient rehabilitation placement. Qualifiers: Encounter type: initial encounter Fracture type: closed Fracture morphology: unspecified fracture morphology Laterality: left Qualified Code( s): S72.402A - Unspecified fracture of lower end of left femur, initial encounter for closed fracture (2) COPD (chronic obstructive pulmonary disease) Current visit: Yes Status: Chronic Currently stable, no signs of COPD exacerbation at this time. Will continue home meds. Qualifiers: COPD type: chronic bronchitis Chronic bronchitis type: unspecified Qualified Code(s): J42 - Unspecified chronic bronchitis (3) DM type 2 (diabetes mellitus, type 2) Current visit: Yes Status: Chronic patient is currently nothing by mouth for surgery today. We will start low-dose sliding scale for now. Hold oral metformin for now. ADA diet post surgery. Qualifiers: Diabetes mellitus complication status: without complication Diabetes mellitus longterm insulin use: unspecified superintendent marine oil terminal insulin use status Qualified Code(s): E11.9 - Type 2 diabetes mellitus without complications (4) HTN (hypertension) Current visit: Yes Status: Chronic BP acceptable, continue to monitor. will resume home meds Qualifiers: Hypertension type: essential hypertension Qualified Code(s): I10 - Essential (primary) hypertension Internal Medicine - H&P: HPI Chief complaint: left femur fracture Admitted From: Hospital to Hospital Transfer Plans for Post Hospital Care: Transfer Custodial Facility History of present illness: Ms. Banda is a 77 year old female with PMH of HTN brought to [facility] from [facility] after sustaining a LEFT distal femur fracture. She fell today. She states that she slipped on the outside stairs, and twisted her left knee. She now complains of sharp constant pain of the left knee with any attempted range of motion. Unable to ambulate. She denies syncope. She denies head injury or loss of consciousness. She denies neck back chest or abdominal pain. She denies any motor or sensory deficits. History of bilateral TKR 08/2015. Recent Right TSR-reverse ball and socket . No complications from the surgery. Significant medical history DMII, COPD with chronic bronchitis, nocturnal hypoxia, HTN, asthma and anxiety. Past Med Surg Social Fam HX - Past Medical History Medical history: arthritis, asthma, COPD, diabetes, hypertension, other Psychiatric history: anxiety - Past Surgical History Surgical History: cholecystectomy, hysterectomy, knee replacement, other - Social History Smoking Status: Former smoker Smokeless Tobacco Status: No Alcohol use: occasionally Drug use: none - Family History Father Living Status: Mother Living Status: Sister Living Status: Still Living Hx Family Cancer: Yes Son Living Status: Internal Medicine - H&P: Meds Alprazolam [Xanax] 0.5 mg PO BID 08/13/15 [History] Oxygen 2.5 l NS HS 08/13/15 [History] traZODone [TraZODone] 100 mg PO HS 08/13/15 [History] Metformin [Glucophage] 500 mg PO BIDWM #60 tablet 08/20/15 [Rx] Tramadol HCl [Ultram] 50 mg PO Q6H PRN 02/02/17 [History] HYDROcodone/Acet 5/325 mg [[place] 5-325 mg] 1 tab PO Q6H PRN 05/20/17 [History] Omeprazole [PriLOSEC] 20 mg PO DAILY 05/20/17 [History] Allergies No Known Allergies Allergy (Verified 05/20/17 11:27) All Systems PM: A 10-system review of systems was performed and is negative for pertinent findings except as documented above in the HPI. - Constitutional Vitals: Temp Pulse Resp BP Pulse Ox 98.5 F 87 18 157/85 95 05/21/17 11:22 05/21/17 11:22 05/21/17 11:22 05/21/17 11:22 05/21/17 11:22 General appearance: Present: cooperative, A&O X 3, answers questions appropriately Exam: neck- supple chest- b/l clear, no added sounds CVS-s1 and s2, no mr//g abd-soft, non tender, bs are present ext- no edema, rt. knee and thigh swollen and tender, decreased ROM. neuro- no focal deficits Internal Med - H&P Results - Labs CBC & Chem 7: 05/21/17 10:05 Labs: Short CBC 05/20/17 05/21/17 Range/Units 17:43 10:05 Hgb 11.0 L 10.1 L (11.5-15.4) g/dL Hct 33.2 L 31.0 L (35.3-44.9) % - Impressions ITS Impressions Femur X-Ray 05/20/17 15:44 IMPRESSION: Status post near anatomic reduction of the displaced and angulated left distal femoral metadiaphyseal fracture with ORIF. D/ / 05/20/2017 18:02:07 Haresh Champagne MD / don Interpreting Provider: Haresh Champagne MD - VTE Documentation of Mechanical Device: Venous foot pump, device
[2017-05-21] MEDS ORDERED: Dextrose Gel 15 GM PO PRN ×2 (13:42)
[2017-05-21] MEDS ORDERED: D5% in Water 1,000 ML IVC PRN (13:42)
[2017-05-21] MEDS ORDERED: *HR* Dextrose 50 % in Water (Syg) 50 ML SYRINGE IVP PRN (13:42)
[2017-05-21] MEDS: Insulin LISPRO 300 UNITS/3 ML VIAL SQ SCH ×2 (16:35→20:34)
[2017-05-21] MEDS: traZODone 50 MG TABLET PO SCH (20:34)
[2017-05-22] MEDS: Melatonin 3 MG TABLET PO PRN ×2 (00:32→21:32)
[2017-05-22] MEDS: *HR* OxyCODONE Immed Rel 5 MG TABLET PO PRN ×4 (06:18→19:35)
[2017-05-22 06:37] LABS: Hematocrit 28.7 % (35.3-44.9); Hemoglobin 9.3 g/dL (11.5-15.4)
[2017-05-22] MEDS: *HR* Metformin 500 MG TABLET PO SCH ×2 (08:12→16:43)
[2017-05-22] MEDS: Aspirin 81 MG TAB.CHEW PO SCH (08:12)
--- NOTE | 2017-05-22 10:13 | Orthopedics Progress Note ---
Date of Encounter: 05/22/17 Time of Encounter: 07:45 - Assessment and Plan (1) Fracture, femur, distal Current Visit: Yes Status: Acute POD#2 Left Distal Femur ORIF 05/20/17 - Patient doing well, A&O in bed. Pain controlled. Vitals stable. Afebrile. H/H - 9.3/28.7 - asymptomatic Plan: Doppler LLE today. LLE: NWB, in knee immobilizer x 6 weeks with no knee flexion Bone stimulator use 3 hours/day - complaining of burning during use, if this happens today will ask bracing to come to evaluate. D/C to ECF today after doppler - to [facility]. Qualifiers: Encounter type: initial encounter Fracture type: closed Fracture morphology: other fracture Laterality: left Qualified Code(s): S72.492A - Other fracture of lower end of left femur, initial encounter for closed fracture (2) History of total right knee replacement Current Visit: Yes Status: Acute (3) Diabetes Current Visit: No Status: Chronic Qualifiers: Diabetes mellitus type: type 2 Diabetes mellitus complication status: without complication Diabetes mellitus chart computer insulin use: without chart computer use Qualified Code(s): E11.9 - Type 2 diabetes mellitus without complications (4) Asthma Current Visit: No Status: Chronic Qualifiers: Asthma severity: mild intermittent Asthma complication type: uncomplicated Qualified Code(s): J45.20 - Mild intermittent asthma, uncomplicated (5) COPD (chronic obstructive pulmonary disease) Current Visit: Yes Status: Chronic Qualifiers: COPD type: chronic bronchitis Chronic bronchitis type: unspecified Qualified Code(s): J42 - Unspecified chronic bronchitis (6) Tobacco abuse Current Visit: No Status: Chronic (7) DM type 2 (diabetes mellitus, type 2) Current Visit: Yes Status: Chronic Qualifiers: Diabetes mellitus complication status: without complication Diabetes mellitus chart computer insulin use: unspecified chart computer insulin use status Qualified Code(s): E11.9 - Type 2 diabetes mellitus without complications Subjective Principal diagnosis: Left Femur Fracture Interval history: POD#2 Left Distal Femur ORIF 05/20/17 - Patient doing well, A&O in bed. Pain controlled. Vitals stable. Afebrile. H/H - 9.3/28.7 - asymptomatic LLE: Minimal swelling, no erythema or ecchymosis noted. + calf tenderness or warmth noted. ROM limited. NV intact distally. Plan: Doppler LLE today. LLE: NWB, in knee immobilizer x 6 weeks with no knee flexion Bone stimulator use 3 hours/day - complaining of burning during use, if this happens today will ask bracing to come to evaluate. D/C to ECF today after doppler - to [facility]. Objective Vital signs: Vital Signs Temp Pulse Resp BP Pulse Ox 05/22/17 07:13 97.5 F L 109 18 114/68 97 05/22/17 00:00 98.8 F 99 16 144/76 98 05/21/17 18:33 99.2 F 104 16 188/77 94 05/21/17 16:03 98.8 F 98 18 145/72 94 05/21/17 11:22 98.5 F 87 18 157/85 95 05/21/17 11:16 75 17 119/68 98 Intake and Output 05/21/17 05/22/17 05/22/17 23:59 07:59 15:59 Intake Total 360 / 360 Balance 360 / 360 Intake: Oral 360 / 360 Other: Meal Breakfast Percent of Meal Consumed 60% # Voids 1 Blood Glucose* 183 172 Incision: clean and dry - Labs CBC & BMP: 05/22/17 06:16 Labs: Abnormal lab results Hgb 9.3 g/dL (11.5-15.4) L 05/22/17 06:16 Hct 28.7 % (35.3-44.9) L 05/22/17 06:16 POC Glucose 183 (58-89) H 05/21/17 20:20 - VTE Documentation of Mechanical Device: Venous foot pump, device Consult Discharge Plan - Plan Additional Instructions: POD#2 Left Distal Femur ORIF 05/20/17 - Patient doing well, A&O in bed. Pain controlled. Vitals stable. Afebrile. H/H - 9.3/28.7 - asymptomatic Plan: Doppler LLE today. LLE: NWB, in T-Scope brace x 6 weeks with no knee flexion Bone stimulator use 3 hours/day D/C to ECF today after doppler - to [facility] Opsite dressing, leave intact until first post-operative visit. If dressing becomes >50% saturated, contact office, remove dressing and place appropriate dressing in its place. Do not allow for dressing to get wet. [place] in place, plan to remove at post-operative day #14-16. Apply cold therapy wrap 3-6x/day for 20 minutes at a time. Encourage ambulation throughout the day Use Incentive spirometer 10x/hour. Elevate affected extremity above heart as tolerated. Referrals: NONE,PCP [Primary Care Provider] -
--- NOTE | 2017-05-22 10:17 | Physician Discharge Referral ---
ExtendedCare Referral Info Transfer To: F Provider in Charge: Provider in Charge after Transfer: PCP Institutional Level of Care: Skilled - Diagnosis (1) Fracture, femur, distal Priority: Primary Status: Acute (2) History of total right knee replacement Priority: Primary Status: Acute (3) Diabetes Priority: Secondary Status: Chronic (4) Asthma Priority: Secondary Status: Chronic (5) COPD (chronic obstructive pulmonary disease) Priority: Secondary Status: Chronic (6) Tobacco abuse Priority: Secondary Status: Chronic (7) DM type 2 (diabetes mellitus, type 2) Priority: Secondary Status: Chronic (8) Status post open reduction and internal fixation (ORIF) of fracture with nonunion Priority: Primary Status: Acute Expected Duration of Placement: < 30 days Prognosis: Good Aware of Diagnosis: Patient Aware of Prognosis: Patient - Transfer Medications Prescriptions: Aspirin 325 mg PO DAILY #21 HYDROcodone/Acet 5/325 mg [[place] 5-325 mg] 1 - 2 tab PO Q6H PRN #40 PRN Reason: Pain traZODone [TraZODone] 100 mg PO HS #3 Home Medications: Alprazolam [Xanax] 0.5 mg PO BID 08/13/15 [History] Oxygen 2.5 l NS HS 08/13/15 [History] Metformin [Glucophage] 500 mg PO BIDWM #60 tablet 08/20/15 [Rx] Omeprazole [PriLOSEC] 20 mg PO DAILY 05/20/17 [History] Aspirin 325 mg PO DAILY #21 05/22/17 [Rx] HYDROcodone/Acet 5/325 mg [[place] 5-325 mg] 1 - 2 tab PO Q6H PRN #40 05/22/17 [ Rx] traZODone [TraZODone] 100 mg PO HS #3 05/22/17 [Rx] Allergies/Adverse Reactions: Allergies No Known Allergies Allergy (Verified 05/20/17 11:27) - Respiratory Orders Oxygen / L per min (2.5 L Q HS via NC) Smoking Cessation: Smoking cessation has been advised. For more information, call the [employer] Tobacco Quit Line at 9-348-PSAP-NOW. - Lab Orders Lab Orders: CBC - Ancillary Orders May use pressure relief devices daily prn, May go on LUANNE w/family/respon republican w /meds at nurse discretion PRN, May consult with Dentist, Cmv Driver, Farm Equipment Operator PRN - Mobility Orders Chair, Ambulate - Rehabiliation Orders Rehab Potential: Good Rehab Orders: Evaluation for Physical Therapy, Evaluation for Occupational Therapy Other: Left Distal Femur ORIF 05/20/17 - Plan: . LLE: NWB, in T-Scope brace x 6 weeks with no knee flexion Bone stimulator use 3 hours/day D/C to ECF today after doppler - to [facility] Opsite dressing, leave intact until first post-operative visit. If dressing becomes >50% saturated, contact office, remove dressing and place appropriate dressing in its place. Do not allow for dressing to get wet. [place] in place, plan to remove at post-operative day #14-16. Apply cold therapy wrap 3-6x/day for 20 minutes at a time. Use Incentive spirometer 10x/hour. Elevate affected extremity above heart as tolerated. - Treatments Skin tear care topically daily PRN per policy - Diet Orders Regular CERTIFICATION: I certify that the transfer of the above named patient to an Extended Care Facility is necessary for the continuing treatment of the diagnosis listed. The above information is true and accurate reflection of patient's current condition. Confidential - Redisclosure prohibited without a patient's written consent.
[2017-05-22] MEDS: Insulin LISPRO 300 UNITS/3 ML VIAL SQ SCH ×3 (11:21→21:33)
--- NOTE | 2017-05-22 12:14 | Discharge Summary ---
Date of Encounter: 05/22/17 Time of Encounter: 10:15 - Discharge Diagnosis (1) Fracture, femur, distal Priority: Primary Status: Acute Qualifiers: Encounter type: initial encounter Fracture type: closed Fracture morphology: unspecified fracture morphology Laterality: left Qualified Code( s): S72.402A - Unspecified fracture of lower end of left femur, initial encounter for closed fracture (2) DM type 2 (diabetes mellitus, type 2) Priority: Secondary Status: Chronic Qualifiers: Diabetes mellitus complication status: without complication Diabetes mellitus retirement insulin use: unspecified retirement insulin use status Qualified Code(s): E11.9 - Type 2 diabetes mellitus without complications (3) Acute blood loss anemia Priority: Secondary Status: Acute (4) COPD (chronic obstructive pulmonary disease) Priority: Secondary Status: Chronic Qualifiers: COPD type: chronic bronchitis Chronic bronchitis type: unspecified Qualified Code(s): J42 - Unspecified chronic bronchitis (5) HTN (hypertension) Priority: Secondary Status: Chronic Qualifiers: Hypertension type: essential hypertension Qualified Code(s): I10 - Essential (primary) hypertension - Discharge Medications Prescriptions: Ipratropium/Albuterol Neb [Duoneb] 3 ml IH Q4HR PRN #30 vial.neb PRN Reason: Shortness Of Breath/Wheezing Aspirin 325 mg PO DAILY #21 HYDROcodone/Acet 5/325 mg [[place] 5-325 mg] 1 - 2 tab PO Q6H PRN #40 PRN Reason: Pain traZODone [TraZODone] 100 mg PO HS #3 Home Medications: Alprazolam [Xanax] 0.5 mg PO BID 08/13/15 [History] Oxygen 2.5 l NS HS 08/13/15 [History] Metformin [Glucophage] 500 mg PO BIDWM #60 tablet 08/20/15 [Rx] Omeprazole [PriLOSEC] 20 mg PO DAILY 05/20/17 [History] Aspirin 325 mg PO DAILY #21 05/22/17 [Rx] HYDROcodone/Acet 5/325 mg [[place] 5-325 mg] 1 - 2 tab PO Q6H PRN #40 05/22/17 [ Rx] traZODone [TraZODone] 100 mg PO HS #3 05/22/17 [Rx] Ipratropium/Albuterol Neb [Duoneb] 3 ml IH Q4HR PRN #30 vial.neb 05/23/17 [Rx] Allergies/Adverse Reactions: Allergies No Known Allergies Allergy (Verified 05/20/17 11:27) Procedures/tests Complete & Pending: Procedures Performed prior 72 hours Category Date Time Status Venous Doppler [EV venous imaging LE LT] Stat Y 05/22/17 08:09 Ordered Date of admission: 05/20/17 13:33 Primary care physician: PCP NONE Consults: 05/20/17 18:15 Consult to Orthopedic Navigator [CONS] [CONS] Routine Consult to Physical Therapy [CONS] Routine Comment: Evaluate, develop and implement POC Reason for Consult: non weight bearing Consult to Physician [CONS] Routine Consulting Provider: Monroe Alva Reason for Consult: postop Call Completed: No RT Post Op Consult [CONS] Routine 05/21/17 10:12 OT [Consult to Occupational Therapy] [CONS] Routine Comment: Evaluate, develop and implement POC Reason for Consult: eval 05/21/17 10:26 Consult to [employer] Associate [CONS] Routine Reason for SW Consult: eval Discharging clinician: Viktoriya Pelayo Anticipated date of discharge: 05/23/17 - Patient Status Disposition: Transfer SNF Condition: Good Functional capacity at discharge: uses cane/walker Overall status at discharge: patient is progressing back to baseline - Discharge Instructions Instructions: Chronic Hypertension (DC) Follow Up With: Bhumi Miner PAC [Physician Manager Budget] - 05/27/17 9:00 am NONE,PCP [Primary Care Provider] - Additional Instructions: Follow up with orthopedics in 2-3 weeks POD#2 Left Distal Femur ORIF 05/20/17 - Patient doing well, A&O in bed. Pain controlled. Vitals stable. Afebrile. H/H - 9.3/28.7 - asymptomatic Plan: Doppler LLE today. LLE: NWB, in T-Scope brace x 6 weeks with no knee flexion Bone stimulator use 3 hours/day D/C to ECF today after doppler - to [facility] O[facility] dressing, leave intact until first post-operative visit. If dressing becomes >50% saturated, contact office, remove dressing and place appropriate dressing in its place. Do not allow for dressing to get wet. [place] in place, plan to remove at post-operative day #14-16. Apply cold therapy wrap 3-6x/day for 20 minutes at a time. Encourage ambulation throughout the day Use Incentive spirometer 10x/hour. Elevate affected extremity above heart as tolerated. - Diet and Activity Diet: diabetic diet, low salt diet Hospital course: Ms. Banda is a 77 year old female patient with history of COPD, diabetes mellitus type 2, hypertension was admitted here for left distal femur fracture. She was evaluated by orthopedics and underwent surgery with open reduction and internal fixation. She has received physical therapy since then and has been recommended placement to skilled rehabilitation for further therapy. She will be discharged from the hospital once she has a bed available for her at the rehabilitation. She will be on DVT prophylaxis with daily aspirin 325 mg - Time Spent with Patient Total time spent providing and/or coordinating discharge services: Less than 30 minutes (25 min) - Constitutional Vitals: Temp Pulse Resp BP Pulse Ox 98.6 F 103 16 137/74 94 05/22/17 11:01 05/22/17 11:01 05/22/17 11:01 05/22/17 11:01 05/22/17 11:01 General appearance: Present: cooperative, A&O X 3, answers questions appropriately - Respiratory Respiratory exam: Present: CTAB. Absent: accessory muscle use, rales, rhonchi, wheezes - Cardiovascular Cardiovascular exam: Present: RRR, +S1, +S2. Absent: diastolic murmur, gallop, rubs, systolic murmur - GI/Abdominal GI/Abdominal exam: Present: normal bowel sounds, soft, no peritoneal signs. Absent: distended, tenderness - Extremities Exam Extremities exam: Present: tenderness (left thigh and knee), warm, radial pulses palpable and symmetrical. Absent: calf tenderness, cyanotic, pedal edema - Neurological Exam Neurological exam: Present: alert, oriented X3, no focal deficits. Absent: facial droop, speech deficit - VTE Documentation of Mechanical Device: Venous foot pump, device
[2017-05-22] MEDS: traZODone 50 MG TABLET PO SCH (21:32)
[2017-05-23] MEDS: *HR* OxyCODONE Immed Rel 5 MG TABLET PO PRN ×2 (02:51→08:23)
[2017-05-23 07:58] VITALS: BP 142/73
[2017-05-23] MEDS: *HR* Metformin 500 MG TABLET PO SCH (08:22)
[2017-05-23] MEDS: Aspirin 81 MG TAB.CHEW PO SCH (08:22)
[2017-05-23] MEDS: Insulin LISPRO 300 UNITS/3 ML VIAL SQ SCH (08:24)
--- NOTE | 2017-05-23 10:04 | Internal Med Progress Note ---
Date of Encounter: 05/23/17 Time of Encounter: 08:20 - Assessment and plan (1) Fracture, femur, distal Current Visit: Yes Status: Acute Assessment and plan: Status post open reduction and internal fixation. Postop day 3. Patient will be discharged to skilled rehabilitation today. DVT prophylaxis with aspirin for 21 days. Qualifiers: Encounter type: initial encounter Fracture type: closed Fracture morphology: unspecified fracture morphology Laterality: left Qualified Code( s): S72.402A - Unspecified fracture of lower end of left femur, initial encounter for closed fracture (2) DM type 2 (diabetes mellitus, type 2) Current Visit: Yes Status: Chronic Assessment and plan: Fairly controlled. Continue insulin regimen here. Patient will be discharged on metformin per her home dose. Qualifiers: Diabetes mellitus complication status: without complication Diabetes mellitus mcfp insulin use: unspecified dedicated intermodal truck driver insulin use status Qualified Code(s): E11.9 - Type 2 diabetes mellitus without complications (3) Acute blood loss anemia Current Visit: Yes Status: Acute Assessment and plan: Stable hemoglobin levels. (4) COPD (chronic obstructive pulmonary disease) Current Visit: Yes Status: Chronic Assessment and plan: Bronchodilators as needed. Qualifiers: COPD type: chronic bronchitis Chronic bronchitis type: unspecified Qualified Code(s): J42 - Unspecified chronic bronchitis (5) HTN (hypertension) Current Visit: Yes Status: Chronic Assessment and plan: Blood pressure is well controlled. Qualifiers: Hypertension type: essential hypertension Qualified Code(s): I10 - Essential (primary) hypertension - Subjective Interval history: Patient doing well. Awaiting placement to skilled rehabilitation later today. Denies any new complaints at this time. Pain is well controlled. - Constitutional Vitals: Temp Pulse Resp BP Pulse Ox 98.0 F 83 17 142/73 99 05/23/17 07:54 05/23/17 07:54 05/23/17 07:54 05/23/17 07:54 05/23/17 07:54 General appearance: Present: cooperative, A&O X 3, answers questions appropriately - Neck Neck exam general surgery: Present: supple, trachea midline. Absent: lymphadenopathy - Cardiovascular Cardiovascular exam: Present: RRR, +S1, +S2. Absent: diastolic murmur, gallop, rubs, systolic murmur - GI/Abdominal GI/Abdominal exam: Present: normal bowel sounds, soft, no peritoneal signs. Absent: distended, tenderness - Extremities Exam Extremities exam: Present: tenderness (Left thigh and knee region), warm, radial pulses palpable and symmetrical. Absent: calf tenderness, cyanotic, pedal edema Internal Medicine: Result - Labs CBC & Chem 7: 05/22/17 06:16 - VTE Documentation of Mechanical Device: Venous foot pump, device Consult Discharge Plan - Plan Instructions: Chronic Hypertension (DC) Additional Instructions: Follow up with orthopedics in 2-3 weeks POD#2 Left Distal Femur ORIF 05/20/17 - Patient doing well, A&O in bed. Pain controlled. Vitals stable. Afebrile. H/H - 9.3/28.7 - asymptomatic Plan: Doppler LLE today. LLE: NWB, in T-Scope brace x 6 weeks with no knee flexion Bone stimulator use 3 hours/day D/C to ECF today after doppler - to [facility] O[facility] dressing, leave intact until first post-operative visit. If dressing becomes >50% saturated, contact office, remove dressing and place appropriate dressing in its place. Do not allow for dressing to get wet. [place] in place, plan to remove at post-operative day #14-16. Apply cold therapy wrap 3-6x/day for 20 minutes at a time. Encourage ambulation throughout the day Use Incentive spirometer 10x/hour. Elevate affected extremity above heart as tolerated. Referrals: Bhmui Miner, PAC [Physician Career Placement Services Counselor] - 05/27/17 9:00 am NONE,PCP [Primary Care Provider] - Prescriptions: Aspirin 325 mg PO DAILY #21 HYDROcodone/Acet 5/325 mg [[place] 5-325 mg] 1 - 2 tab PO Q6H PRN #40 PRN Reason: Pain traZODone [TraZODone] 100 mg PO HS #3
--- NOTE | 2017-05-24 13:49 | Venous Imaging Report ---
LE Venous Duplex Patient Name:Cira Banda Order Number:[id number] Procedure Date:05/22/2017 Date:2Age:77 yrs Gender:Female Location:[facility] Room #: [id number] Risk Mgr:Muna Zamora Referring MD:Bhumi Miner PA-C packing and wrapping supervisor:None Reading MD:Panchito Guthrie MD , FACS Primary Indications:r/o DVT Secondary Indications: Impressions: Left lower extremity: normal superficial and deep exam. Right lower extremity: normal contralateral exam. Recommendations: After imaging the patient returned to their room. Gave vascular preliminary results to JANEL De La Garza RN on 05/22/2017 at 20:25. Test completed on 05/22/2017 at 8:20:00 pm. Findings Venous Duplex Results: Right: Venous imaging of the lower extremity reveals full patency and normal vessel compressibility of the right common femoral. Doppler signals in the evaluated veins were normal. Left: Venous imaging of the lower extremity reveals full patency and normal vessel compressibility of the left distal iliac, left common femoral, left superficial femoral, left popliteal, left posterior tibial, left peroneal, left great saphenous and left lesser saphenous. Doppler signals in the evaluated veins were normal. Prior Study: No prior study available for comparison. Lower Extremity Venous Duplex Side Vein Compress Spontaneous Flow Augment Diameter (cm) Depth (cm) Left Distal Iliac Normal Yes Phasic Yes Left Common Femoral Normal Yes Phasic Yes Left Superficial Femoral Normal Yes Phasic Yes Left Popliteal Normal Yes Phasic Yes Left Posterior Tibial Normal Yes Phasic Yes Left Peroneal Normal Yes Phasic Yes Left Great Saphenous Normal Yes Phasic Yes Left Lesser Saphenous Normal Yes Phasic Yes Right Common Femoral Normal Yes Phasic Yes Updated by Panchito Guthrie MD, FACS on 05/24/2017 1:42:58 PM Panchito Guthrie MD electronically signed on 05/24/2017 1:44:01 PM with status of Final
== END 2017-05-23 10:31 | DRG 482 ==
LOC: 3NENU 13:33
PROVIDERS: ADMIT Internal Medicine; ATTEND Internal Medicine